=== PATIENT | male | born 1980 | race Caucasian/White ===

== ENCOUNTER 2021-05-29 21:14 | Emergency (ER) | payer BC ==
[~2021-05-29] VITALS: Ht 162.6 cm; Wt 82.5 kg
[2021-05-29] MEDS ORDERED: HYDROCODON-ACE1 EA10 PO (23:17)
[2021-05-29] MEDS ORDERED: CRUTCHES XX (23:17)
== END 2021-05-29 23:44 | disposition home or self-care (01) ==
LOC: ED 21:14
DX: S82.61XA Displaced fracture of lateral malleolus of right fibula, initial encounter for closed fracture (principal); I10 Essential (primary) hypertension; X50.1XXA Overexertion from prolonged static or awkward postures, initial encounter; W18.40XA Slipping, tripping and stumbling without falling, unspecified, initial encounter
CPT/HCPCS: 73610; 99283-25; A9270

== ENCOUNTER 2021-06-03 08:00 | Day surgery (SDC) | payer BC ==
[~2021-06-03] VITALS: Ht 162.6 cm; Wt 80.9 kg
[~2021-06-03 08:00] MED LIST: CRUTCHES XX; HYDROCODON-ACE1 EA10 PO
[2021-06-03] MEDS ORDERED: HYDROCODON-ACE1 EA11 PO (10:48)
--- NOTE | 2021-06-03 20:41 | OR ---
[facility] [address] [place], [place] [address] Signed DATE OF OPERATION: 06/03/2021 SURGEON: Chetan Rascon MD PREOPERATIVE DIAGNOSIS: Right ankle fracture, displaced. POSTOPERATIVE DIAGNOSIS: Right ankle fracture, displaced. PROCEDURE PERFORMED: Open reduction and internal fixation of right lateral malleolus. LIGHT ADJUSTER: None. ANESTHESIA: General. BLOOD LOSS: Minimal. TOURNIQUET TIME: Zero. IMPLANTS: Arthrex FibuLock 3.8 x 130 with two locking screws. BRIEF HISTORY: Cady is a 41-year-old gentleman, who suffered a ground-level fall fracturing his ankle. Risks and benefits of operative treatment discussed with him. He elected to proceed. DESCRIPTION OF PROCEDURE: Once consent was obtained, he was taken to the operating room after adequate anesthesia. He was placed on a hip bump. The right leg was then prepped and draped in a standard sterile fashion. The tibia was then marked out under image intensifier guidance and 1.5 cm incision was made at the distal tip. The guide pin was then advanced from the tip proximally into the body of the fibula. This was over-reamed using the reamer, followed by placement of the long guide audi. Once that was accomplished, the 3.2 and 4.0 reamers were used to ream the fibula with minimal chatter. We selected a small, very short 3.8, Electronically Signed By: CHETAN RASCON MD 06/03/212040 PATIENT NAME: CADY MORILLO OPERATIVE REPORT DATE OF : 82 REPORT #: [id number] PHYSICIAN: CHETAN RASCON MD PCP: BENTON KUMAR PA-C REPORT IS CONFIDENTIAL AND NOT TO BE RELEASED WITHOUT AUTHORIZATION [address] [place], [place] [address] Signed and placed it in the distal hole and advanced across the fracture engaging the body of the fibula. Once it was into the appropriate position, the proximal fins were opened up and locked. The two distal interlocking screws were placed through the insertion guide under image-intensifier guidance. The insertion guide was then removed. The wounds were cleansed using normal saline, closed with the stapler and dressed with Allevyn dressing, ABD, and Bird wrap. He was placed back into his fracture boot, taken to the recovery room in satisfactory condition. All sponge, needle, and instrument counts were correct. Chetan Rascon MD BA/MODL /[id number] Copies: ~ Electronically Signed By: CHETAN RASCON MD 06/03/212040 PATIENT NAME: CDAY MORILLO OPERATIVE REPORT DATE OF : 82 REPORT #: [id number] PHYSICIAN: CHETAN RASCON MD PCP: BENTON KUMAR PA-C REPORT IS CONFIDENTIAL AND NOT TO BE RELEASED WITHOUT AUTHORIZATION
== END 2021-06-03 12:25 | disposition home or self-care (01) ==
LOC: DS 08:00
PROVIDERS: ATTEND Specialist
PROC: 0QSJ04Z Reposition Right Fibula with Internal Fixation Device, Open Approach (ICD-10-PCS; principal; 2021-06-03 11:00)
DX: S82.61XA Displaced fracture of lateral malleolus of right fibula, initial encounter for closed fracture (principal); X50.1XXA Overexertion from prolonged static or awkward postures, initial encounter; F17.200 Nicotine dependence, unspecified, uncomplicated
CPT/HCPCS: 64447; 73600; C1713; C1769; J0690; J1100; J2001; J2250; J2405; J2704; J2795; J3010